=== PATIENT | female | born 1975 | race Two or more races ===

== ENCOUNTER 2022-04-18 11:47 | Outpatient (CLI) | payer OTHER ==
[~2022-04-18 11:47] MED LIST: VERAPAMIL ER240 MG PO
== END 2022-04-18 11:57 | disposition home or self-care (01) ==
LOC: PPH VACUNA 11:47
PROVIDERS: ATTEND Emergency Medicine Pediatric Emergency Medicine
DX: Z23 Encounter for immunization (principal)

== ENCOUNTER 2022-04-18 14:26 | Outpatient (CLI) | payer OTHER | END 2022-04-18 14:28 | disposition home or self-care (01) | LOC: PPH VACUNA 14:26 | PROVIDERS: ATTEND Emergency Medicine Pediatric Emergency Medicine | DX: Z23 Encounter for immunization (principal) ==

== ENCOUNTER 2022-08-27 14:54 | Emergency (ER) | payer OTHER ==
[~2022-08-27] VITALS: Ht 162.6 cm; Wt 68.9 kg
[2022-08-27] MEDS ORDERED: SINGULAIR4 MG (15:04)
[2022-08-27] MEDS ORDERED: COZAAR100 MG (15:05)
[2022-08-27] MEDS ORDERED: ALLEGRA ALLERG180 MG PO (18:34)
== END 2022-08-27 18:51 | disposition home or self-care (01) ==
LOC: ER 14:54
DX: R60.0 Localized edema (principal); T39.1X5A Adverse effect of 4-Aminophenol derivatives, initial encounter; Z88.8 Allergy status to other drugs, medicaments and biological substances

== ENCOUNTER → 2022-09-24 | Emergency (ER) | payer OTHER ==
[~2022-09-24] VITALS: Ht 152.4 cm; Wt 117.9 kg
[~2022-09-24] MED LIST changes: +ALLEGRA ALLERG180 MG PO; +COZAAR100 MG; +SINGULAIR4 MG; +TUSSIN DM SYRU118 ML PO; +ZITHROMAX500 MG PO
== END | disposition home or self-care (01) ==
LOC: ER 08:48
DX: B34.9 Viral infection, unspecified (principal); I10 Essential (primary) hypertension; Z88.6 Allergy status to analgesic agent; Z20.822 Contact with and (suspected) exposure to COVID-19

== ENCOUNTER 2022-12-08 14:32 | Emergency (ER) | payer OTHER ==
[~2022-12-08] VITALS: Ht 152.4 cm; Wt 117.9 kg
== END 2022-12-08 18:37 | disposition home or self-care (01) ==
LOC: ER 14:32
DX: J06.9 Acute upper respiratory infection, unspecified (principal); Z20.822 Contact with and (suspected) exposure to COVID-19

== ENCOUNTER 2023-10-07 11:24 | Outpatient (CLI) | payer OTHER | END 2023-10-07 11:34 | disposition home or self-care (01) | LOC: PPH VACUNA 11:24 | PROVIDERS: ATTEND Emergency Medicine Pediatric Emergency Medicine | DX: Z23 Encounter for immunization (principal) | CPT/HCPCS: 90653; G0008 ==

== ENCOUNTER 2024-03-24 15:43 | Outpatient (CLI) | payer OTHER | END 2024-03-24 15:51 | disposition home or self-care (01) | LOC: LAB 15:43 | PROVIDERS: ATTEND Preventive Medicine Occupational Medicine | DX: J11.1 Influenza due to unidentified influenza virus with other respiratory manifestations (principal); Z20.828 Contact with and (suspected) exposure to other viral communicable diseases ==

== ENCOUNTER 2024-03-25 05:03 | Emergency (ER) | payer OTHER ==
[~2024-03-25] VITALS: Ht 152.4 cm; Wt 117.9 kg
[2024-03-25] MEDS ORDERED: HYDROCODONE/CHLORPHEN P-STIREX 5 ML ML PO STA (06:10)
[2024-03-25 06:35] LABS: HEMATOCRIT 39.3 % (36.0-45.00); HEMOGLOBIN 13.1 g/dL (12.0-15.00); MEAN CELL VOLUME 84.2 fL (80.00-100.00); MEAN CORPUSCULAR HGB CONC 33.3 g/dl (32.0-36.0); PLATELET COUNT 300 K/uL (150-450); RED BLOOD COUNT 4.67 M/uL (4.00-6.00); RED CELL DISTRIBUTION WIDTH 15.2 % (11.5-14.5)
== END 2024-03-25 08:35 | disposition home or self-care (01) ==
LOC: ER 05:05
DX: J06.9 Acute upper respiratory infection, unspecified (principal); J00 Acute nasopharyngitis [common cold]; Z20.822 Contact with and (suspected) exposure to COVID-19; Z88.6 Allergy status to analgesic agent

== ENCOUNTER 2024-04-28 09:19 | Emergency (ER) | payer OTHER ==
[~2024-04-28] VITALS: Ht 152.4 cm; Wt 127.0 kg
[2024-04-28] MEDS ORDERED: 0.9 % SODIUM CHLORIDE 1,000 ML IV STA (09:50)
[2024-04-28] MEDS ORDERED: ONDANSETRON HCL 2 MG/ML VIAL IV STA (09:50)
[2024-04-28] MEDS ORDERED: FAMOTIDINE/PF 20 MG in 0.9 % SODIUM CHLORIDE 8 ML IV PUSH STA (09:51)
[2024-04-28 10:23] LABS: HEMATOCRIT 42.2 % (36.0-45.00); HEMOGLOBIN 13.8 g/dL (12.0-15.00); MEAN CELL VOLUME 85.3 fL (80.00-100.00); MEAN CORPUSCULAR HGB CONC 32.8 g/dl (32.0-36.0); PLATELET COUNT 338 K/uL (150-450); RED BLOOD COUNT 4.95 M/uL (4.00-6.00); RED CELL DISTRIBUTION WIDTH 15.7 % (11.5-14.5)
[2024-04-28 10:39] LABS: CALCIUM 9.6 mg/dL (8.5-10.1); CREATININE SERUM 0.93 mg/dL (0.55-1.02); GFR 64.62; POTASSIUM 3.9 mEq/L (3.5-5.1)
[2024-04-28 12:28] LABS: URINE APPEARANCE Clear; URINE BILIRRUBIN Negative (NEGATIVE); URINE BLOOD Moderate; URINE COLOR Yellow; URINE GLUCOSE Negative (NEGATIVE); URINE KETONE Negative (NEGATIVE); URINE LEUKOCYTE Trace; URINE NITRATE Negative; URINE UROBILINOGEN 0.2 E.U./dl
[2024-04-28 12:33] LABS: URINE BACTERIA 2862.5 uL (0.0-1933); URINE EPITHELIAL CELLS 59.1 uL (0.0-38.8); URINE RBC 18.9 uL (0.0-20.8); URINE WBC 79.6 uL (0.0-23.2)
[2024-04-28 12:54] LABS: URINE CAST 1.06 uL (0.0-1.40); URINE PROTEIN 100 (NEGATIVE)
[2024-04-28 12:55] LABS: URINE CRYSTALS FEW /HPF
== END 2024-04-28 14:16 | disposition home or self-care (01) ==
LOC: ER 09:21
PROVIDERS: Emergency Medicine
DX: K29.70 Gastritis, unspecified, without bleeding (principal); R11.10 Vomiting, unspecified; Z88.6 Allergy status to analgesic agent

== ENCOUNTER 2024-05-09 09:00 | Outpatient (CLI) | payer OTHER | END 2024-05-09 09:30 | disposition home or self-care (01) | LOC: PPH VACUNA 09:00 | PROVIDERS: ATTEND Emergency Medicine Pediatric Emergency Medicine | DX: Z23 Encounter for immunization (principal) ==

== ENCOUNTER 2024-07-12 09:30 | Emergency (ER) | payer OTHER ==
[~2024-07-12] VITALS: Ht 152.4 cm; Wt 127.0 kg
[2024-07-12] MEDS ORDERED: FAMOtidine 10 MG/ML (4ML VIAL) IV STA (11:10)
[2024-07-12] MEDS ORDERED: METOCLOPRAMIDE HCL 5 MG/ML VIAL IM STA (11:10)
[2024-07-12] MEDS ORDERED: ONDANSETRON HCL 2 MG/ML VIAL IV STA (11:14)
[2024-07-12] MEDS ORDERED: ONDANSETRON HCL 2 MG/ML VIAL ONE (11:18)
[2024-07-12] MEDS ORDERED: METOCLOPRAMIDE HCL 5 MG/ML VIAL ONE (11:19)
[2024-07-12] MEDS ORDERED: FAMOTIDINE/PF 20 MG/2 ML VIAL ONE (11:19)
[2024-07-12 12:11] LABS: HEMOGLOBIN 13.6 g/dL (12.0-15.00); MEAN CELL VOLUME 84.3 fL (80.00-100.00); MEAN CORPUSCULAR HGB CONC 33.3 g/dl (32.0-36.0); PLATELET COUNT 319 K/uL (150-450); RED BLOOD COUNT 4.86 M/uL (4.00-6.00); RED CELL DISTRIBUTION WIDTH 14.9 % (11.5-14.5)
[2024-07-12 12:12] LABS: PH,URINE 5.5 (5.0-8.0); URINE APPEARANCE Clear; URINE BILIRRUBIN Negative (NEGATIVE); URINE BLOOD Large; URINE COLOR Yellow; URINE GLUCOSE Negative (NEGATIVE); URINE KETONE Negative (NEGATIVE); URINE LEUKOCYTE Small; URINE NITRATE Negative; URINE PROTEIN Trace (NEGATIVE); URINE UROBILINOGEN 0.2 E.U./dl
[2024-07-12 12:16] LABS: URINE EPITHELIAL CELLS 28.6 uL (0.0-38.8); URINE WBC 72.1 uL (0.0-23.2)
[2024-07-12 12:58] LABS: URINE CAST 0.14 uL (0.0-1.40)
[2024-07-12 14:21] LABS: CALCIUM 9.6 mg/dL (8.5-10.1); CREATININE SERUM 0.81 mg/dL (0.55-1.02); GFR 75.47; POTASSIUM 4.18 mEq/L (3.5-5.1)
== END 2024-07-12 13:53 | disposition home or self-care (01) ==
LOC: ER 09:30
PROVIDERS: General Practice
DX: K29.70 Gastritis, unspecified, without bleeding (principal); R11.10 Vomiting, unspecified; Z88.6 Allergy status to analgesic agent

== ENCOUNTER 2024-09-08 07:28 | Emergency (ER) | payer OTHER ==
[~2024-09-08] VITALS: Ht 152.4 cm; Wt 127.0 kg
[2024-09-08] MEDS ORDERED: TRAMADOL HCL 50 MG TABLET PO ONE (09:00)
== END 2024-09-08 11:54 | disposition home or self-care (01) ==
LOC: ER 07:30
DX: S89.81XA Other specified injuries of right lower leg, initial encounter (principal); S59.801A Other specified injuries of right elbow, initial encounter; S69.82XA Other specified injuries of left wrist, hand and finger(s), initial encounter; W19.XXXA Unspecified fall, initial encounter; Y93.89 Activity, other specified; Y92.89 Other specified places as the place of occurrence of the external cause; Y99.8 Other external cause status; I10 Essential (primary) hypertension; Z88.6 Allergy status to analgesic agent

== ENCOUNTER 2024-10-03 08:30 | Outpatient (CLI) | payer OTHER ==
[2024-10-04 11:05] LABS: HEPATITIS A ANTIBODY IGG Negative (Negative); HEPATITIS B SURFACE ANTIBODY Non Reactive (.); HEPATITIS C VIRUS ANTIBODY Non Reactive (Non Reactive)
== END 2024-10-03 08:31 | disposition home or self-care (01) ==
LOC: LAB 08:30
DX: A64 Unspecified sexually transmitted disease (principal); B19.9 Unspecified viral hepatitis without hepatic coma

== ENCOUNTER 2024-10-10 05:11 | Emergency (ER) | payer OTHER ==
[~2024-10-10] VITALS: Ht 152.4 cm; Wt 127.0 kg
[2024-10-10] MEDS ORDERED: LOSARTAN-HCTZ1 EAC1 PO (05:14)
[2024-10-10] MEDS ORDERED: CEFTRIAXONE SODIUM 1,000 MG VIAL IM STA (07:59)
== END 2024-10-10 08:24 | disposition home or self-care (01) ==
LOC: ER 05:12
DX: J06.9 Acute upper respiratory infection, unspecified (principal); I10 Essential (primary) hypertension; Z88.8 Allergy status to other drugs, medicaments and biological substances

== ENCOUNTER 2025-01-10 08:24 | Emergency (ER) | payer OTHER ==
[~2025-01-10] VITALS: Ht 152.4 cm; Wt 129.7 kg
[~2025-01-10 08:24] MED LIST changes: +LOSARTAN-HCTZ1 EAC1 PO
[2025-01-10] MEDS ORDERED: BACLOFEN10 MG PO ×2 (10:55→12:21)
[2025-01-10] MEDS ORDERED: 8 HOUR650 MG PO ×2 (10:55→12:21)
[2025-01-10] MEDS ORDERED: DEXAMETHASONE SODIUM PHOSPHATE 4 MG/ML VIAL IM ONE (11:00)
[2025-01-10] MEDS ORDERED: ORPHENADRINE CITRATE 30 MG/ML AMPUL IM ONE (11:00)
== END 2025-01-10 12:33 | disposition home or self-care (01) ==
LOC: ER 08:24
DX: G89.11 Acute pain due to trauma (principal); M25.561 Pain in right knee; Z88.6 Allergy status to analgesic agent; J45.909 Unspecified asthma, uncomplicated; I10 Essential (primary) hypertension; M54.50 Low back pain, unspecified

== ENCOUNTER 2025-05-05 11:00 | Outpatient (CLI) | payer OTHER ==
[~2025-05-05 11:00] MED LIST changes: +8 HOUR650 MG PO; +BACLOFEN10 MG PO
== END 2025-05-05 11:10 | disposition home or self-care (01) ==
LOC: PPH VACUNA 11:00
PROVIDERS: ATTEND Emergency Medicine Pediatric Emergency Medicine
DX: Z23 Encounter for immunization (principal)

== ENCOUNTER 2025-05-23 11:43 | Outpatient (CLI) | payer OTHER | END 2025-05-23 11:44 | disposition home or self-care (01) | LOC: LAB 11:43 | PROVIDERS: ATTEND Orthopaedic Surgery | DX: Z32.00 Encounter for pregnancy test, result unknown (principal) ==

== ENCOUNTER 2025-05-30 10:00 | Day surgery (SDC) | payer OTHER ==
[2025-05-22 10:09] VITALS: BP 151/84
[2025-05-22 11:29] LABS: BASO % 0.5 % (0.1-1.2); EOS # 0.27 (0.04-0.54); EOS % 3.7 % (0.7-7.0); LYMPH # 1.92 (1.18-3.74); LYMPH % 26.2 % (19.3-53.1); MEAN PLATELET VOLUME 10.00 fl (9.4-12.4); MONO # 0.47 (0.24-0.82); MONO % 6.4 % (4.7-12.5); NEUT # 4.58 (1.56-6.13); NEUT % 62.4 % (34.0-71.1); RED CELL DISTRIBUTION WIDTH 14.1 % (11.6-14.4)
[2025-05-22 11:34] LABS: URINE APPEARANCE Clear; URINE BILIRRUBIN Negative (NEGATIVE); URINE BLOOD Moderate; URINE COLOR Yellow; URINE GLUCOSE Negative (NEGATIVE); URINE KETONE Negative (NEGATIVE); URINE LEUKOCYTE Small; URINE NITRATE Negative; URINE PROTEIN Negative (NEGATIVE); URINE UROBILINOGEN 0.2 E.U./dl
[2025-05-22 11:39] LABS: URINE BACTERIA 619.1 uL (0.0-1933); URINE EPITHELIAL CELLS 31.5 uL (0.0-38.8); URINE RBC 6.1 uL (0.0-20.8); URINE WBC 52.1 uL (0.0-23.2)
[2025-05-22 12:06] LABS: INR 0.98
[2025-05-22 12:11] LABS: URINE CAST 0.00 uL (0.0-1.40)
[2025-05-22 12:24] LABS: ALT/SGPT 38.0 U/L (12-78); AST/SGOT 20.0 U/L (15-37); BILIRUBIN TOTAL 0.37 mg/dL (0.3-1.2); BUN CREA RATIO 13.0 (7.0-25.0); CREATININE SERUM 0.82 mg/dL (0.55-1.02); GFR 74.41; GLOBULINA 4.1 G/DL (2.4-3.5); GLUCOSE FASTING 131.0 mg/dL (65-100); OSMOLALITY SERUM 284.0 MOSM/KG (275-295)
[~2025-05-30] VITALS: Ht 152.4 cm; Wt 108.9 kg
[2025-05-30] MEDS ORDERED: CEFAZOLIN SODIUM 1,000 MG VIAL ONE (12:07)
[2025-05-30] MEDS ORDERED: LIDOCAINE HCL 1%/EPINEPHRINE 20ML VIAL IJ ONE (12:08)
[2025-05-30] MEDS ORDERED: BUPIVACAINE HCL/Mpf 0.5% 10ML VIAL ONE (12:08)
[2025-05-30] MEDS ORDERED: METHYLPREDNISOLONE ACETATE 80 MG/ML VIAL ONE (12:53)
[2025-05-30] MEDS ORDERED: EPINEPHRINE HCL/PF 1 MG/ML AMPUL ONE (12:53)
[2025-05-30] MEDS ORDERED: SUGAMMADEX SODIUM 200 MG/2 ML VIAL IV ONE (13:22)
[2025-05-30] MEDS ORDERED: MORPHINE SULFATE 4 MG/ML CARTRIDGE IV STA (14:03)
[2025-05-30] MEDS ORDERED: ENDOCET 5-3251 EACH PO (14:12)
== END 2025-05-30 13:55 | disposition home or self-care (01) ==
LOC: CIR.AMB 10:00
PROVIDERS: ATTEND Orthopaedic Surgery
DX: S83.251A Bucket-handle tear of lateral meniscus, current injury, right knee, initial encounter (principal); M67.51 Plica syndrome, right knee; M22.41 Chondromalacia patellae, right knee; M65.861 Other synovitis and tenosynovitis, right lower leg; M17.11 Unilateral primary osteoarthritis, right knee; Z88.6 Allergy status to analgesic agent